=== PATIENT | female | born 1970 | race African-American/Black ===

== ENCOUNTER 2020-12-22 16:00 | Emergency (ER) | payer MEDICAID, OTHER ==
[~2020-12-22] VITALS: Ht 170.2 cm; Wt 68.0 kg
[2020-12-22] MEDS ORDERED: KETOROLAC 30MG/ML VIAL IV STA (17:13)
[2020-12-22] MEDS ORDERED: SODIUM CHLORIDE 0.9% 1,000 ML IV ONE (17:15)
[2020-12-22 17:29] LABS: BASOPHILS % 0.5 % (0.0-2.0); EOSINOPHILS % 1.2 % (0.0-5.0); HEMATOCRIT. 30.8 % (36.0-48.0); HEMOGLOBIN. 9.6 g/dL (12.0-16.0); LYMPHOCYTES % 22.1 % (20.0-50.0); MEAN CORPUSCULAR HEMOGLOBIN 26.9 pg (28.0-32.0); MEAN CORPUSCULAR VOLUME 86.5 fL (81.0-99.0); MEAN PLATELET VOLUME 8.5 fl (7.4-10.4); MONOCYTES % 6.7 % (2.0-8.0); NEUTROPHILS % 69.5 % (40.0-76.0); PLATELET 332 x1000/uL (130-400); RED BLOOD CELL COUNT 3.56 mill/uL (4.2-5.4)
[2020-12-22 17:31] LABS: CLARITY URINE CLEAR (CLEAR); COLOR URINE YELLOW (YELLOW); KETONES URINE TRACE (NEGATIVE); LEUKOCYTE ESTERASE URINE NEGATIVE (NEGATIVE); NITRITE URINE NEGATIVE (NEGATIVE); OCCULT BLOOD URINE NEGATIVE (NEGATIVE); PH URINE 7.5 (4.5-8.0); PROTEIN URINE NEGATIVE (NEGATIVE); SPECIFIC GRAVITY URINE 1.023 (1.005-1.030)
[2020-12-22 17:47] LABS: CHLORIDE 107 mEq/L (98-107)
[2020-12-22] MEDS ORDERED: OMEP40CA20 MT (20:51)
[2020-12-22 21:14] VITALS: BP 184/97
== END 2020-12-22 21:16 | disposition home or self-care (01) ==
LOC: ER 16:00
DX: R10.11 Right upper quadrant pain (principal); I50.9 Heart failure, unspecified
CPT/HCPCS: 36415; 71045; 76705; 80053; 81003; 83690; 85025; 93005; 96361; 96374; 99291; J1885; J7030